=== PATIENT | male | born 2000 | race Caucasian/White ===

== ENCOUNTER 2024-07-24 09:44 | Outpatient (OUT) | payer OTHER, SELFPAY ==
--- NOTE | 2024-07-24 09:53 | XR_ITS ---
The [address] [address] Patient Name: JB BRYAN MRN: [id number] date: 2000 Sex: M Assigned Patient Location: [facility] Current Patient Location: Accession/Order Number: [id number] Exam Date: 07/24/2024 10:00 Report Date: 07/26/2024 04:31 At the request of: LIEN DALY Procedure: XR lumbar spine min 4V EXAMINATION: XR lumbar spine min 4V HISTORY: Low Back Pain COMPARISON: XR L-spine 06/30/2021 FINDINGS: BONES: No significant spondylosis, scoliosis, fracture, or visible bony lesion. DISC SPACES: Mild narrowing L5-S1. PARASPINOUS: Negative. No paraspinous abnormality is seen. OTHER: Negative. XR/XR lumbar spine min 4V IMPRESSION: 1. L5-S1 mild degenerative disc disease. Electronically authenticated by: RUDY KUHN Date: 07/26/2024 04:31
== END 2024-07-24 09:45 | disposition home or self-care (01) ==
LOC: RAD 09:49
PROVIDERS: PCP Family Medicine; Visit Provider Family Medicine
DX: M54.50 Low back pain, unspecified (principal); M51.369 Other intervertebral disc degeneration, lumbar region without mention of lumbar back pain or lower extremity pain
CPT/HCPCS: 72110